=== PATIENT | female | born 1990 | race African-American/Black ===

== ENCOUNTER 2018-09-21 00:53 | Emergency (ER) | payer SELFPAY ==
[2018-09-21 01:15] VITALS: BP 126/69; PULSE 70; TEMP 98.2; BMI 23.6
--- NOTE | 2018-09-21 01:17 | PDOC ---
*Physical Exam - Vital Signs Last Vital Signs Temp Pulse Resp BP Pulse Ox 98.2 F 70 18 126/69 99 09/21/18 01:10 09/21/18 01:10 09/21/18 01:10 09/21/18 01:10 09/21/18 01:10 Medical Decision Making - Medical Decision Making 09/21/18 01:16 Patient seen by the advanced practice provider under my direct supervision. Ancillary testing reviewed as necessary. I agree with plan as outlined by the advanced practice provider. *DC/Admit/Observation/Transfer Diagnosis at time of Disposition: Menstrual cramp, Endometriosis - Discharge Dispostion Disposition: HOME Condition at time of disposition: Stable - Referrals Referrals: Delta Rashid MD [Staff Physician] - - Patient Instructions Printed Discharge Instructions: DI for Endometriosis, DI for Dysmenorrhea - Post Discharge Activity
--- NOTE | 2018-09-21 01:20 | PDOC ---
History of Present Illness - General Chief Complaint: Pain Stated Complaint: ABDOMINAL CRAMPING Time Seen by Provider: 09/21/18 01:15 - History of Present Illness Initial Comments: 09/21/18 01:15 CHIEF COMPLAINT: pelvic cramping HISTORY OF PRESENT ILLNESS: 28 yo F with hx of endometriosis presents to ED with b/l pelvic cramping x 1 week, now resolved. Pt reports that she took pamprin prior to arrival and now pain has resolved. "just wanted to make sure everything was ok, like i don't have a cyst or anytihng. 2014. Patient is not followed by OBGYN as she just recently moved from [place]. Denies any current pain. LMP "beginning of July" but has irregular peroids due to her Nexplanon. No recent travel or sick contacts. PAST MEDICAL HISTORY: Denies past medical history FAMILY HISTORY: Denies SOCIAL HISTORY: Denies tobacco, alcohol, illicit drug use. SURGICAL HISTORY: Denies ALLERGIES: No known drug allergies REVIEW OF SYSTEMS General/Constitutional: Denies fever or chills. Denies weakness, weight change. HEENT: Denies change in vision. Denies ear pain or discharge. Denies sore throat. Cardiovascular: Denies chest pain or shortness of breath. Respiratory: Denies cough, wheezing, or hemoptysis. Gastrointestinal: Denies nausea, vomiting, diarrhea or constipation. Denies rectal bleeding. Genitourinary: Pelvic pain x 1 week, now resolved. Denies dysuria, frequency, or change in urination. Musculoskeletal: Denies joint or muscle swelling or pain. Denies neck or back pain. Skin and breasts: Denies rash or easy bruising. Neurologic: Denies headache, vertigo, loss of consciousness, or loss of sensation. PHYSICAL EXAM General Appearance: Well-appearing, appropriately dressed. No apparent distress. HEENT: EOMI, PERRLA, normal ENT inspection, normal voice, TMs normal, pharynx normal. No conjunctival pallor. No photophobia, scleral icterus. Neck: Supple. Trachea midline. No tenderness, rigidity, carotid bruit, stridor , lymphadenopathy, or thyromegaly. Respiratory/Chest: Lungs CTAB. No shortness of breath, chest tenderness, respiratory distress, accessory muscle use. No crackles, rales, rhonchi, stridor , wheezing, dullness Cardiovascular: RRR. S1, S2. No JVD, murmur, bradycardia, tachycardia. Gastrointestinal/Abdominal: Normal bowel sounds. Abdomen soft, non-distended. No tenderness or rebound tenderness. No organomegaly, pulsatile mass, guarding , hernia, hepatomegaly, splenomegaly. Musculoskeletal/Extremities: Normal inspection. FROM of all extremities, normal capillary refill. Pelvis Stable. No CVA tenderness. No tenderness to extremities, pedal edema, swelling, erythema or deformity. Integumentary: Appropriate color, dry, warm. No cyanosis, erythema, jaundice or rash Neurologic: quarantine inspector II-XII intact. Fully oriented, alert. Appropriate mood/affect. Motor strength 5/5. No appreciable EOM palsy, facial droop or sensory deficit. 09/21/18 01:52 Past History - Past Medical History Allergies/Adverse Reactions: Allergies Allergy/AdvReac Type Severity Reaction Status Date / Time No Known Allergies Allergy Verified 09/21/18 01:12 COPD: No Other medical history: ENDOMETRIOSIS - Suicide/Smoking/Psychosocial Hx Smoking History: Never smoked *Physical Exam - Vital Signs Last Vital Signs Temp Pulse Resp BP Pulse Ox 98.2 F 70 18 126/69 99 09/21/18 01:10 09/21/18 01:10 09/21/18 01:10 09/21/18 01:10 09/21/18 01:10 Medical Decision Making - Medical Decision Making 09/21/18 01:21 28 yo F with hx of endometriosis presents to ED with b/l pelvic cramping x 1 week, now resolved. -UA, Upreg discussed outpatient US with patient, patient verbalized understanding and agrees to plan. referral for OBGYN given. 09/21/18 01:53 *DC/Admit/Observation/Transfer Diagnosis at time of Disposition: Menstrual cramp, Endometriosis - Discharge Dispostion Disposition: HOME Condition at time of disposition: Stable Decision to Admit order: No - Referrals Referrals: Delta Rashid MD [Staff Physician] - - Patient Instructions Printed Discharge Instructions: DI for Endometriosis, DI for Dysmenorrhea - Post Discharge Activity
[2018-09-21 02:02] LABS: URINE APPEARANCE CLEAR; URINE BILIRUBIN NEGATIVE (NEGATIVE); URINE COLOR YELLOW; URINE GLUCOSE (UA) NEGATIVE (NEGATIVE); URINE KETONE NEGATIVE (NEGATIVE); URINE LEUK ESTERASE NEGATIVE (NEGATIVE); URINE NITRITE NEGATIVE (NEGATIVE); URINE PROTEIN NEGATIVE (NEGATIVE); URINE UROBILINOGEN 0.2 mg/dL (0.2-1.0)
== END 2018-09-21 02:14 | disposition home or self-care (01) ==
LOC: JER 00:53
DX: N94.6 Dysmenorrhea, unspecified (principal); N80.9 Endometriosis, unspecified
CPT/HCPCS: 81003; 84703; 99282-25